=== PATIENT | male | born 1970 | race Caucasian/White ===

== ENCOUNTER 2023-08-23 13:54 | Emergency (ER) | payer BC, SELFPAY ==
[2023-08-23 14:02] VITALS: BP 140/78; PULSE 66; RESP 18; TEMP 36.8; O2SAT 100
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
[2023-08-23 16:40] VITALS: BP 140/89; PULSE 98; TEMP 37.3; O2SAT 97
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
== END 2023-08-23 17:54 | disposition home or self-care (01) ==
PROVIDERS: Emergency Provider Nurse Practitioner Acute Care
DX: S43.101A Unspecified dislocation of right acromioclavicular joint, initial encounter (principal); V18.4XXA Pedal cycle driver injured in noncollision transport accident in traffic accident, initial encounter; Y92.482 Bike path as the place of occurrence of the external cause; Y93.55 Activity, bike riding; Y99.9 Unspecified external cause status
CPT/HCPCS: 99283; 73010; 73030